=== PATIENT | female | born 1960 | race Two or more races ===

== ENCOUNTER 2018-03-06 05:47 | Inpatient (IN) | payer OTHER ==
[~2018-03-06] VITALS: Ht 154.9 cm; Wt 136.0 kg
[~2018-03-06 05:47] MED LIST: PROTONIX
[2018-03-07] MEDS ORDERED: ULTRACET PO (07:54)
[2018-03-07] MEDS ORDERED: RECTICARE30 GM TOP (07:54)
== END 2018-03-07 12:07 | disposition home or self-care (01) | DRG 348 ==
LOC: ER 05:47 → SEC-K 10:28 → O/R 14:59 → SURG 19:21
PROVIDERS: Surgery
PROC: 0DBR0ZZ Excision of Anal Sphincter, Open Approach (ICD-10-PCS; 2018-03-06)
PROC: 3E0T3BZ Introduction of Anesthetic Agent into Peripheral Nerves and Plexi, Percutaneous Approach (ICD-10-PCS; 2018-03-06)
PROC: 0D8R0ZZ Division of Anal Sphincter, Open Approach (ICD-10-PCS; principal; 2018-03-06 13:00)
DX: K60.1 Chronic anal fissure (principal); K62.5 Hemorrhage of anus and rectum; K62.89 Other specified diseases of anus and rectum; K57.30 Diverticulosis of large intestine without perforation or abscess without bleeding

== ENCOUNTER 2018-03-09 14:47 | Emergency (ER) | payer OTHER ==
[~2018-03-09] VITALS: Ht 152.4 cm; Wt 61.7 kg
[~2018-03-09 14:47] MED LIST changes: +RECTICARE30 GM TOP; +ULTRACET PO
== END 2018-03-09 20:02 | disposition home or self-care (01) ==
LOC: ER 14:47
DX: K62.89 Other specified diseases of anus and rectum (principal); R19.7 Diarrhea, unspecified

== ENCOUNTER 2020-06-01 16:47 | Emergency (ER) | payer OTHER ==
[~2020-06-01] VITALS: Ht 149.9 cm; Wt 67.1 kg
[2020-06-01] MEDS ORDERED: RESTORIL30 M1 (17:19)
[2020-06-01] MEDS ORDERED: ASPIR 8181 MG (17:20)
== END 2020-06-01 23:40 | disposition home or self-care (01) ==
LOC: ER 16:47
DX: N39.0 Urinary tract infection, site not specified (principal); R10.31 Right lower quadrant pain

== ENCOUNTER 2020-06-06 06:00 | Inpatient (IN) | payer OTHER ==
[~2020-06-06] VITALS: Ht 149.9 cm; Wt 67.6 kg
[~2020-06-06 06:00] MED LIST changes: +ASPIR 8181 MG; +RESTORIL30 M1
[2020-06-12] MEDS ORDERED: ULTRACET PO (12:48)
[2020-06-12] MEDS ORDERED: PROTONIX40 MG PO (12:48)
== END 2020-06-12 14:39 | disposition home or self-care (01) | DRG 337 ==
LOC: ER 06:00 → SURH 13:28 → SEC-K 13:28 → SURH 16:17
PROVIDERS: ADMIT Surgery; ATTEND Surgery
PROC: BW21ZZZ Computerized Tomography (CT Scan) of Abdomen and Pelvis (ICD-10-PCS; 2020-06-06)
PROC: 3E0F7GC Introduction of Other Therapeutic Substance into Respiratory Tract, Via Natural or Artificial Opening (ICD-10-PCS; 2020-06-06)
PROC: 05HY33Z Insertion of Infusion Device into Upper Vein, Percutaneous Approach (ICD-10-PCS; 2020-06-07)
PROC: B246ZZZ Ultrasonography of Right and Left Heart (ICD-10-PCS; 2020-06-09)
PROC: 0DNW4ZZ Release Peritoneum, Percutaneous Endoscopic Approach (ICD-10-PCS; principal; 2020-06-11 07:00)
DX: K57.30 Diverticulosis of large intestine without perforation or abscess without bleeding (principal); E86.0 Dehydration; R07.89 Other chest pain; K66.0 Peritoneal adhesions (postprocedural) (postinfection); K62.89 Other specified diseases of anus and rectum; R39.89 Other symptoms and signs involving the genitourinary system; M54.41 Lumbago with sciatica, right side; Z20.828 Contact with and (suspected) exposure to other viral communicable diseases

== ENCOUNTER 2020-10-10 18:55 | Emergency (ER) | payer OTHER ==
[~2020-10-10] VITALS: Ht 149.9 cm; Wt 64.4 kg
[~2020-10-10 18:55] MED LIST changes: +PROTONIX40 MG PO
[2020-10-10] MEDS ORDERED: DEXILANT60 MG (19:17)
[2020-10-10] MEDS ORDERED: PEPCID (19:18)
== END 2020-10-11 00:21 | disposition home or self-care (01) ==
LOC: ER 18:55
DX: R10.13 Epigastric pain (principal); Z20.828 Contact with and (suspected) exposure to other viral communicable diseases